=== PATIENT | female | born 1990 | race Caucasian/White ===

== ENCOUNTER 2021-12-23 10:45 | Emergency (ER) | payer BC, OTHER ==
[~2021-12-23 10:45] MED LIST: COLACE 100MG C100 MG PO
[2021-12-23 12:24] LABS: HEMOGLOBIN 8.4 gm/dl (12.3-15.3); RED BLOOD COUNT 4.64 M/UL (4.00-5.10)
[2021-12-23 12:50] LABS: BUN/CREATININE RATIO 24 (0-10)
[2021-12-23] MEDS ORDERED: MACROBID 100 M100 MG PO (15:24)
[2021-12-23] MEDS ORDERED: PHENERGAN 25 MG25 M1 PO (15:24)
== END 2021-12-23 15:52 | disposition home or self-care (01) ==
LOC: ER1 10:45
PROVIDERS: Physician Assistant
DX: N39.0 Urinary tract infection, site not specified (principal); E86.0 Dehydration; R11.2 Nausea with vomiting, unspecified
CPT/HCPCS: 80053; 81001; 82150; 83690; 84703; 85025; 96374; 96375; 99284; C9113; J2405

== ENCOUNTER 2022-01-13 22:51 | Inpatient (IN) | payer OTHER ==
[~2022-01-13] VITALS: Ht 160 cm; Wt 54.9 kg
[~2022-01-13 22:51] MED LIST changes: +MACROBID 100 M100 MG PO; +PHENERGAN 25 MG25 M1 PO
[2022-01-14 00:52] LABS: HEMOGLOBIN 8.7 gm/dl (12.3-15.3); RED BLOOD COUNT 4.74 M/UL (4.00-5.10); WHITE BLOOD COUNT 6.1 K/UL (4.5-11.0)
[2022-01-14 01:16] LABS: BUN/CREATININE RATIO 14 (0-10)
[2022-01-14] MEDS ORDERED: PROTONIX40 MG PO (07:26)
[2022-01-14] MEDS ORDERED: PROZAC10 MG PO (07:26)
[2022-01-14] MEDS ORDERED: LEVOFLOXACIN500 MG PO (08:22)
[2022-01-14] MEDS ORDERED: ONDANSETRON HCL4 MG PO (08:23)
[2022-01-14] MEDS ORDERED: TETRACYCLINE H500 MG PO (08:23)
[2022-01-14 09:40] LABS: BUN/CREATININE RATIO 7 (0-10)
[2022-01-15 04:17] LABS: HEMOGLOBIN 7.4 gm/dl (12.3-15.3); WHITE BLOOD COUNT 4.7 K/UL (4.5-11.0)
[2022-01-15 04:28] LABS: RED BLOOD COUNT 4.02 M/UL (4.00-5.10)
[2022-01-15 04:38] LABS: BUN/CREATININE RATIO 4 (0-10)
[2022-01-16 05:54] LABS: HEMOGLOBIN 8.8 gm/dl (12.3-15.3); RED BLOOD COUNT 4.83 M/UL (4.00-5.10)
[2022-01-16 06:19] LABS: BUN/CREATININE RATIO 4 (0-10)
[2022-01-16] MEDS ORDERED: GABAPENTIN300 MG PO (14:04)
[2022-01-17 06:02] LABS: HEMOGLOBIN 8.2 gm/dl (12.3-15.3); RED BLOOD COUNT 4.51 M/UL (4.00-5.10); WHITE BLOOD COUNT 5.1 K/UL (4.5-11.0)
[2022-01-18 07:06] LABS: HEMOGLOBIN 9.5 gm/dl (12.3-15.3)
[2022-01-18 07:09] LABS: RED BLOOD COUNT 5.22 M/UL (4.00-5.10); WHITE BLOOD COUNT 6.8 K/UL (4.5-11.0)
[2022-01-18 07:42] LABS: BUN/CREATININE RATIO 2 (0-10)
[2022-01-18 16:18] LABS: BUN/CREATININE RATIO 2 (0-10)
[2022-01-19 06:28] LABS: HEMOGLOBIN 8.4 gm/dl (12.3-15.3); WHITE BLOOD COUNT 8.2 K/UL (4.5-11.0)
[2022-01-19 06:37] LABS: RED BLOOD COUNT 4.61 M/UL (4.00-5.10)
[2022-01-19 07:11] LABS: BUN/CREATININE RATIO 2 (0-10)
[2022-01-20 06:10] LABS: HEMOGLOBIN 7.7 gm/dl (12.3-15.3); RED BLOOD COUNT 4.15 M/UL (4.00-5.10)
[2022-01-20 06:36] LABS: BUN/CREATININE RATIO 2 (0-10)
[2022-01-20] MEDS ORDERED: COLACE100 MG PO (09:07)
[2022-01-20] MEDS ORDERED: HYDROCODON-ACE1 EAC4 PO (09:07)
[2022-01-20] MEDS ORDERED: METOCLOPRAMIDE H5 MG PO (10:35)
[2022-01-20] MEDS ORDERED: KLOR-CON M2020 MEQ PO (10:35)
== END 2022-01-21 11:15 | disposition home or self-care (01) | DRG 417 ==
LOC: ER1 22:51 → MED SURG 4 01-14 03:29 → CDU 01-14 03:29 → MED SURG 4 01-14 03:29 → PROG CARE 01-14 06:50 → MED SURG 4 01-14 15:29
PROVIDERS: Internal Medicine; Physician Assistant; Surgery; ADMIT Internal Medicine
PROC: 0DB98ZX Excision of Duodenum, Via Natural or Artificial Opening Endoscopic, Diagnostic (ICD-10-PCS; 2022-01-16)
PROC: 0DB78ZX Excision of Stomach, Pylorus, Via Natural or Artificial Opening Endoscopic, Diagnostic (ICD-10-PCS; 2022-01-16)
PROC: 0FT44ZZ Resection of Gallbladder, Percutaneous Endoscopic Approach (ICD-10-PCS; principal; 2022-01-18 13:30)
DX: K82.8 Other specified diseases of gallbladder (principal); E43 Unspecified severe protein-calorie malnutrition; E87.2 Acidosis; N13.30 Unspecified hydronephrosis; Z20.822 Contact with and (suspected) exposure to COVID-19; E88.89 Other specified metabolic disorders; M19.90 Unspecified osteoarthritis, unspecified site; E87.6 Hypokalemia; D50.9 Iron deficiency anemia, unspecified; Z87.19 Personal history of other diseases of the digestive system; Z90.49 Acquired absence of other specified parts of digestive tract; Z88.8 Allergy status to other drugs, medicaments and biological substances; Z98.891 History of uterine scar from previous surgery; Z68.21 Body mass index [BMI] 21.0-21.9, adult
CPT/HCPCS: 36415; 71045; 76705; 78227; 80048; 80053; 81001; 82009; 82607; 82728; 82746; 83540; 83550; 83690; 83735; 84100; 84132; 84439; 84443; 84703; 85025; 85027; 85045; 85652; 86140; 87086; 88342; 96365; 96375; 96376; 99285; A9537; C9113; J0690; J1100; J1170; J1650; J2001; J2250; J2270; J2405; J2550; J2704; J2710; J2765; J2805; J3010; J3480; J7030; J7040; J7120; Q9967; U0002